=== PATIENT | male | born 2005 | race Caucasian/White ===

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

== ENCOUNTER 2023-03-01 18:46 | Emergency (ER) | payer OTHER ==
[~2023-03-01] VITALS: Ht 167.6 cm; Wt 72.6 kg
[~2023-03-01 18:46] MED LIST changes: +NAPR-54 PO
[2023-03-01 19:20] VITALS: BP 162/88; PULSE 89; RESP 20; TEMP 97; O2SAT 86
[2023-03-01] MEDS ORDERED: IBUP-2218 PO (21:17)
[2023-03-01] MEDS ORDERED: ACET-10509 PO (21:17)
[2023-03-01 21:25] VITALS: BP 142/78; PULSE 76; RESP 20; TEMP 97; O2SAT 97
== END 2023-03-01 21:25 | disposition home or self-care (01) ==
LOC: MED 18:46
DX: S90.32XA Contusion of left foot, initial encounter (principal); I11.9 Hypertensive heart disease without heart failure; Z79.899 Other long term (current) drug therapy; X58.XXXA Exposure to other specified factors, initial encounter; Y93.89 Activity, other specified; Y92.89 Other specified places as the place of occurrence of the external cause; Y99.8 Other external cause status
CPT/HCPCS: 73630; 99283

== ENCOUNTER 2023-03-12 18:27 | Emergency (ER) | payer OTHER ==
[~2023-03-12] VITALS: Ht 182.9 cm; Wt 86.6 kg
[~2023-03-12 18:27] MED LIST changes: +ACET-10509 PO; +IBUP-2218 PO
[2023-03-12 18:37] VITALS: BP 151/92; PULSE 96; RESP 16; TEMP 98; O2SAT 80
[2023-03-12] MEDS ORDERED: LIDOCAINE/EPI 2% 1:100000 20 ML VIAL INJ ONE (19:10)
[2023-03-12] MEDS ORDERED: AMOX-1230 PO (19:52)
[2023-03-12] MEDS ORDERED: IBUP-1842 PO (19:52)
[2023-03-12 20:20] VITALS: BP 151/92; PULSE 96; RESP 16; TEMP 98; O2SAT 80
== END 2023-03-12 20:20 | disposition home or self-care (01) ==
LOC: MED 18:27
DX: L02.31 Cutaneous abscess of buttock (principal); I11.9 Hypertensive heart disease without heart failure; Z79.899 Other long term (current) drug therapy
CPT/HCPCS: 99282; 99283

== ENCOUNTER 2023-03-17 21:54 | Emergency (ER) | payer OTHER ==
[~2023-03-17] VITALS: Ht 188 cm; Wt 86.2 kg
[~2023-03-17 21:54] MED LIST changes: +AMOX-1230 PO; +IBUP-1842 PO
[2023-03-17 22:15] VITALS: BP 150/81; PULSE 83; RESP 18; TEMP 98.1; O2SAT 97
[2023-03-18 01:00] VITALS: O2SAT 97
== END 2023-03-18 02:16 | disposition home or self-care (01) ==
LOC: MED 21:54
DX: L02.31 Cutaneous abscess of buttock (principal); I11.9 Hypertensive heart disease without heart failure; Z79.899 Other long term (current) drug therapy
CPT/HCPCS: 99281

== ENCOUNTER 2023-11-14 20:36 | Emergency (ER) | payer OTHER ==
[~2023-11-14] VITALS: Ht 182.9 cm; Wt 86.6 kg
[~2023-11-14 20:36] MED LIST changes: +NAPR-337 PO; -NAPR-54 PO
[2023-11-14 20:48] VITALS: BP 169/101; PULSE 78; RESP 18; TEMP 99.7; O2SAT 88
[2023-11-14 21:50] VITALS: O2SAT 88
[2023-11-14] MEDS ORDERED: SULF-59 PO (23:14)
== END 2023-11-14 23:23 | disposition home or self-care (01) ==
LOC: MED 20:36
DX: L02.31 Cutaneous abscess of buttock (principal); I10 Essential (primary) hypertension; Z79.899 Other long term (current) drug therapy
CPT/HCPCS: 99284

== ENCOUNTER 2023-11-16 21:17 | Emergency (ER) | payer OTHER ==
[~2023-11-16] VITALS: Ht 180.3 cm; Wt 86.2 kg
[~2023-11-16 21:17] MED LIST changes: +SULF-59 PO
[2023-11-16 21:54] VITALS: BP 142/88; PULSE 84; RESP 16; TEMP 97.1; O2SAT 89
== END 2023-11-16 22:40 | disposition home or self-care (01) ==
LOC: MED 21:17
DX: S31.811D Laceration without foreign body of right buttock, subsequent encounter (principal); I10 Essential (primary) hypertension; Z86.79 Personal history of other diseases of the circulatory system; Z79.1 Long term (current) use of non-steroidal anti-inflammatories (NSAID); Z79.2 Long term (current) use of antibiotics; Z79.899 Other long term (current) drug therapy; X58.XXXD Exposure to other specified factors, subsequent encounter
CPT/HCPCS: 99281